=== PATIENT | female | born 1955 | race American Indian/Alaskan Native ===

== ENCOUNTER 2018-07-11 06:10 | Outpatient (CLI) | payer MEDICARE, MEDICAID | END 2018-07-11 06:11 | disposition home or self-care (01) | LOC: CARDIO 06:10 | DX: R60.9 Edema, unspecified (principal); I10 Essential (primary) hypertension; R94.31 Abnormal electrocardiogram [ECG] [EKG]; Z68.41 Body mass index [BMI] 40.0-44.9, adult ==